=== PATIENT | female | born 1940 | race Caucasian/White ===

== ENCOUNTER 2023-04-14 14:16 | Inpatient (IN) | payer MEDICARE, OTHER ==
[~2023-04-14] VITALS: Ht 162.6 cm; Wt 60.9 kg
[~2023-04-14 14:16] MED LIST: ALEN70; CALCIUM PO; CALPHO600; CHOL10002 PO; CYAN1000 PO; EPIN.3I IM; EUTHYROX88 MCG PO; FAMO20 PO; FISH1000 PO; LEVSOD75 PO; LEVSOD88 PO; MAG PO; PRED10 PO; Percocet 5-3251 EACH PO; VIT D PO
[2023-04-14 14:41] LABS: BASOPHILS ABSOLUTE AUTO 0.03 K/mm3 (0.00-0.23); BASOPHILS PERCENT AUTO 0 % (0-2); EOSINOPHILS ABSOLUTE AUTO 0.06 K/mm3 (0.00-0.68); EOSINOPHILS PERCENT AUTO 1 % (0-6); Hemoglobin 13.1 g/dL (11.5-16.0); IMMATURE GRAN ABSOLUTE AUTO 0.06 K/mm3 (0.00-0.10); IMMATURE GRAN PERCENT AUTO 1 % (0-1); LYMPHOCYTES ABSOLUTE AUTO 2.24 K/mm3 (0.84-5.20); LYMPHOCYTES PERCENT AUTO 22 % (21-46); MONOCYTES ABSOLUTE AUTO 0.88 K/mm3 (0.16-1.47); MONOCYTES PERCENT AUTO 9 % (4-13); Mean Corpuscular HGB 29.4 pg (26.0-34.0); Mean Corpuscular HGB Conc 32.8 g/dL (31.5-36.5); Mean Corpuscular Volume 90 fL (80-100); NEUTROPHILS ABSOLUTE AUTO 7.12 K/mm3 (1.96-9.15); NEUTROPHILS PERCENT AUTO 68 % (41-73); Platelet Count 267 K/mm3 (150-400); RDW Coefficient Variation 12.7 % (11.7-14.2); RDW Standard Deviation 41.8 fL (35.1-46.3); Red Blood Cell Count 4.46 M/mm3 (3.80-5.20); White Blood Cell Count 10.39 K/mm3 (4.00-11.30)
[2023-04-14 14:58] LABS: Albumin, Blood 3.9 g/dL (3.4-5.0); Albumin/Globulin Ratio 1.1 (0.8-1.8); Bilirubin, Total 0.4 mg/dL (0.1-1.0); Bun/Creatinine Ratio 27.1 (12.0-20.0); Calcium, Blood 9.4 mg/dL (8.5-10.1); Globulin, Blood 3.6 g/dL (2.2-4.0); Potassium, Blood 3.6 mmol/L (3.5-5.5); Total Protein, Blood 7.5 g/dL (6.4-8.2)
[2023-04-14 16:53] LABS: Magnesium, Blood 2.5 mg/dL (1.6-2.4)
[2023-04-14] MEDS ORDERED: ONDA4ODT MM (16:59)
[2023-04-14 20:59] LABS: Triglycerides 165 mg/dL (30-160)
[2023-04-14 22:14] VITALS: BP 160/83
--- NOTE | 2023-04-14 22:33 | NUR ---
ADMIT NOTE; PT ARRIVES VIA ED GURNEY TO THE FLOOR, UPON ADMIT THE PT IS ABLE TO TRANSFER FROM THE ED GURNEY TO THE HOSPITAL BED W/ A STANDBY ASSIST. THE PT IS AXO X4. THE PT ENDORSES SOME MILD ABD PAIN UPON ADMIT, BUT NO N/V. THE PT DOES NOT APPEAR TO BE IN ACUTE DISTRESS AT THIS TIME. THE PT IS ABLE TO REST INTO BED COMFORTABLY. CURRENTLY THE PT IS SLEEPING IN BED WITH THE BED IN THE LOWEST POSITION AND THE CALL LIGHT AT BEDSIDE. FIRE EDUCATION PROVIDED AND IGNITION RISK ASSESSED.
[2023-04-14 22:55] LABS: Base Excess Venous -3.7 mmol/L; Bicarbonate Venous 22.1 mmol/L (24.0-30.0); PCO2 Venous 32.3 mmHg (38-42); pH Blood Venous 7.42 (7.34-7.37)
[2023-04-15 01:55] VITALS: BP 166/86
--- NOTE | 2023-04-15 04:44 | NUR ---
SHIFT SUMMARY; NO ACUTE CHANGES SINCE ADMIT. THE PT HAS REQUESTED PRN PAIN MEDICATION AND NAUSEA MEDICATION A FEW TIMES. THE PT IS AXO X4 AND A STANDBY ASSIST TO THE BATHROOM. THE PT HAS BEEN NPO ORDERED SINCE ADMIT. THE PT DENIES ANY SOB, CHEST PAIN/PRESSURE OR NUMBNESS/TINGELING THIS SHIFT. CURRENTLY THE PT IS SLEEPING IN BED WITH THE BED IN THE LOWEST POSITION AND THE CALL LIGHT AT BEDSIDE. FIRE SAFETY ROUNDS COMPLETED.
[2023-04-15 06:35] LABS: Hematocrit 44.7 % (33.0-51.0); Hemoglobin 15.1 g/dL (11.5-16.0); Mean Corpuscular HGB 29.2 pg (26.0-34.0); Mean Corpuscular HGB Conc 33.8 g/dL (31.5-36.5); Mean Corpuscular Volume 86 fL (80-100); Mean Platelet Volume 9.3 fL (9.1-12.4); Platelet Count 230 K/mm3 (150-400); RDW Coefficient Variation 13.1 % (11.7-14.2); RDW Standard Deviation 40.5 fL (35.1-46.3); Red Blood Cell Count 5.18 M/mm3 (3.80-5.20); White Blood Cell Count 14.38 K/mm3 (4.00-11.30)
[2023-04-15 07:47] VITALS: BP 160/61
[2023-04-15 11:26] LABS: Triglycerides 64 mg/dL (30-160)
[2023-04-15 11:29] LABS: Albumin, Blood 3.3 g/dL (3.4-5.0); Bilirubin, Total 0.7 mg/dL (0.1-1.0); Bun/Creatinine Ratio 20.4 (12.0-20.0); Calcium, Blood 8.4 mg/dL (8.5-10.1); Creatinine, Blood 0.88 mg/dL (0.40-1.00); Globulin, Blood 3.3 g/dL (2.2-4.0); Magnesium, Blood 2.2 mg/dL (1.6-2.4); Total Protein, Blood 6.6 g/dL (6.4-8.2)
[2023-04-15 14:38] VITALS: BP 116/51
--- NOTE | 2023-04-15 16:45 | NUR ---
SHIFT SUMMARY PATIENT CONTINUES TO HAVE ABDOMINAL PAIN. PAIN IMPROVED AFTER TORADOL INJECTION AND HEATING PAD. PATIENT INDEPENDENT IN THE ROOM. IV FLUIDS INFUSING. PATIENT TO START CLEAR LIQUID DIET AND ADVANCE TOLERATED. PATIENT CONCERNED ABOUT ADMISSION. PATIENT STATES THAT SHE HAS PLANS TO TRAVEL IN 2 WEEKS. EDUCATION PROVIDED TO BOTH PATIENT AND RELATED TO PANCREATITIS, PAIN, DIET AND MOBILIZING.
[2023-04-15 20:02] VITALS: BP 121/60
[2023-04-16 04:02] VITALS: BP 135/66
--- NOTE | 2023-04-16 04:23 | NUR ---
SHIFT SUMMARY NOC PT A/O X 4. PLEASANT AND COOPERATIVE WITH CARE. NO ACUTE CHANGES TO REPORT. PT PAIN HAS ONLY NEEDED TO BE MANAGED WITH PAIN RX X 1. PT DID HAVE COMPLAINT OF GAS AND SIMETHICONE ORDER OBTAINED. PT HAS LR INFUSING @ 125 ML/HR. PT REPORTS EAGERNESS TO DISCHARGE HOME POSSIBLY ON TUESDAY. PT IS CURRENTLY RESTING WITH BED IN LOWEST POSITION, AND CALL LIGHT WITHIN REACH.
[2023-04-16 05:11] LABS: Hematocrit 36.6 % (33.0-51.0); Hemoglobin 11.8 g/dL (11.5-16.0); Mean Corpuscular HGB 28.7 pg (26.0-34.0); Mean Corpuscular HGB Conc 32.2 g/dL (31.5-36.5); Mean Corpuscular Volume 89 fL (80-100); Mean Platelet Volume 9.2 fL (9.1-12.4); Platelet Count 174 K/mm3 (150-400); RDW Coefficient Variation 13.2 % (11.7-14.2); RDW Standard Deviation 43.3 fL (35.1-46.3); Red Blood Cell Count 4.11 M/mm3 (3.80-5.20)
[2023-04-16 05:43] LABS: Albumin, Blood 2.7 g/dL (3.4-5.0); Albumin/Globulin Ratio 0.8 (0.8-1.8); Bilirubin, Total 0.9 mg/dL (0.1-1.0); Bun/Creatinine Ratio 20.7 (12.0-20.0); Calcium, Blood 7.7 mg/dL (8.5-10.1); Creatinine, Blood 0.92 mg/dL (0.40-1.00); Globulin, Blood 3.2 g/dL (2.2-4.0); Total Protein, Blood 5.9 g/dL (6.4-8.2)
[2023-04-16 05:48] LABS: BAND PERCENT MAN 21 % (0-8); BASOPHILS PERCENT MAN 0 % (0-2); EOSINOPHILS PERCENT MAN 0 % (0-6); LYMPHOCYTES ABSOLUTE MAN 0.42 K/mm3 (0.84-5.20); LYMPHOCYTES PERCENT MAN 3 % (21-46); MONOCYTES ABSOLUTE MAN 1.14 K/mm3 (0.16-1.47); MONOCYTES PERCENT MAN 8 % (4-13); NEUTROPHILS ABSOLUTE MAN 12.72 K/mm3 (1.96-9.15); SEG NEUTROPHILS PERCENT MAN 68 % (41-73); TOTAL CELLS COUNTED 100
[2023-04-16 07:36] VITALS: BP 144/60
[2023-04-16 14:56] VITALS: BP 155/59
--- NOTE | 2023-04-16 19:16 | NUR ---
SHIFT SUMMARY: NO ACUTE EVENTS. MEDICATED FOR DISCOMFORT, BUT NEVER REALLY ENDORSES PAIN, DESCRIBES BLOATING. DIET ADVANCED TO FULL LIQUID; DIDN'T EAT MUCH AND WAS SLIGHTLY NAUSEATED AFTER BUT DID NOT NEED ANTIEMETIC AND NO EMESIS NOTED. TOOK TWO WALKS IN HALLWAY WITH FAMILY. STARTED ON BOWEL MEDS, NO RESULT YET.
[2023-04-16 20:30] VITALS: BP 140/60
--- NOTE | 2023-04-17 04:47 | NUR ---
SHIFT SUMMARY NOC PT A/O X 4. PLEASANT AND COOPERATIVE WITH CARE. PT HAD C/O OF SEVERE BACK PAIN DUE TO BEING IN BED FOR PAST FEW DAYS AND REQUESTED IV DILAUDID FOR PAIN RELIEF. PT HAS LR @ 125 ML/HR INFUSING. PT SWITCHED TO FULL LIQUID DIET YESTERDAY AND REPORTED BEING ABLE TO HANDLE BROTH WELL WITH LIMITED NAUSEA. PT IS EAGER TO DISCHARGE HOME. PT IS CURRENTLY RESTING WITH BED IN LOWEST POSITION, AND CALL LIGHT WITHIN REACH.
[2023-04-17 05:08] VITALS: BP 151/70
[2023-04-17 07:19] VITALS: BP 142/70
[2023-04-17 08:12] LABS: Hematocrit 33.9 % (33.0-51.0); Hemoglobin 11.1 g/dL (11.5-16.0); Mean Corpuscular HGB 29.6 pg (26.0-34.0); Mean Corpuscular HGB Conc 32.7 g/dL (31.5-36.5); Mean Corpuscular Volume 90 fL (80-100); Mean Platelet Volume 9.2 fL (9.1-12.4); Platelet Count 156 K/mm3 (150-400); RDW Coefficient Variation 13.2 % (11.7-14.2); RDW Standard Deviation 43.5 fL (35.1-46.3); Red Blood Cell Count 3.75 M/mm3 (3.80-5.20)
[2023-04-17 08:33] LABS: BAND PERCENT MAN 7 % (0-8); BASOPHILS PERCENT MAN 0 % (0-2); EOSINOPHILS ABSOLUTE MAN 0.14 K/mm3 (0.00-0.68); EOSINOPHILS PERCENT MAN 1 % (0-6); LYMPHOCYTES ABSOLUTE MAN 0.56 K/mm3 (0.84-5.20); LYMPHOCYTES PERCENT MAN 4 % (21-46); MONOCYTES ABSOLUTE MAN 0.98 K/mm3 (0.16-1.47); MONOCYTES PERCENT MAN 7 % (4-13); NEUTROPHILS ABSOLUTE MAN 12.32 K/mm3 (1.96-9.15); SEG NEUTROPHILS PERCENT MAN 81 % (41-73); TOTAL CELLS COUNTED 100
[2023-04-17 08:39] LABS: Albumin, Blood 2.4 g/dL (3.4-5.0); Albumin/Globulin Ratio 0.6 (0.8-1.8); Bilirubin, Total 1.1 mg/dL (0.1-1.0); Bun/Creatinine Ratio 17.4 (12.0-20.0); Creatinine, Blood 0.92 mg/dL (0.40-1.00); Globulin, Blood 3.8 g/dL (2.2-4.0); Potassium, Blood 3.9 mmol/L (3.5-5.5); Total Protein, Blood 6.2 g/dL (6.4-8.2)
[2023-04-17] MEDS ORDERED: MIRALAX17 GM PO (11:30)
[2023-04-17] MEDS ORDERED: SENN187 PO (11:30)
[2023-04-17] MEDS ORDERED: HYDMOR2 PO (11:31)
--- NOTE | 2023-04-17 15:08 | NUR ---
PATIENT DISCHARGED TO HOME ACCOMPANIED BY FAMILY. IV SALINE LOCK REMOVED WITHOUT INCIDENT. VERBALIZED UNDERSTANDING OF D/C INSTRUCTIONS. GIVEN HARD RX FOR PAIN MEDICATIONS. OFF UNIT VIA W/C AT 1201. NO PERSONAL BELONGINGS LEFT BEHIND IN ROOM.
== END 2023-04-17 11:50 | disposition home or self-care (01) | DRG 440 ==
LOC: ER 14:16 → MEDS 21:06 → ENPENDDIS 04-17 11:10 → MEDS 04-17 11:50
PROVIDERS: Emergency Medicine; Internal Medicine; Nurse Practitioner Acute Care; Student in an Organized Health Care Education/Training Program; ADMIT Internal Medicine
DX: K85.00 Idiopathic acute pancreatitis without necrosis or infection (principal); E03.9 Hypothyroidism, unspecified; G89.29 Other chronic pain; M54.9 Dorsalgia, unspecified; Z88.0 Allergy status to penicillin; Z91.018 Allergy to other foods; Z79.890 Hormone replacement therapy
CPT/HCPCS: 36415; 74177; 80053; 82803; 83690; 83735; 84478; 85025; 85027; 93005; 93010; 94762; 96361; 96374-59; 96375; 96375-59; 99285-25; A9270; C9113; J1170; J1650; J1885; J2405; J2765; J3010; J7030; J7120; Q9967

== ENCOUNTER → 2023-08-02 | Outpatient (CLI) | payer OTHER ==
[~2023-08-02] MED LIST changes: +HYDMOR2 PO; +MIRALAX17 GM PO; +ONDA4ODT MM; +SENN187 PO
== END ==
LOC: PLD 12:50 → LAB SHORT 12:50
DX: L72.8 Other follicular cysts of the skin and subcutaneous tissue (principal)
CPT/HCPCS: 88305